=== PATIENT | male | born 1985 | race Caucasian/White ===

== ENCOUNTER 2019-11-02 15:36 | Emergency (ER) | payer OTHER ==
[~2019-11-02] VITALS: Ht 167.6 cm; Wt 81.7 kg
== END 2019-11-02 18:50 | disposition home or self-care (01) ==
LOC: ED 15:36
DX: J06.9 Acute upper respiratory infection, unspecified (principal); Z91.048 Other nonmedicinal substance allergy status; Z88.8 Allergy status to other drugs, medicaments and biological substances; Z88.7 Allergy status to serum and vaccine
CPT/HCPCS: 71045; 80053; 81001; 83605; 85025; 87502; 96374; 99283-25; A9270; J1885; J7030